=== PATIENT | male | born 1955 | race Caucasian/White ===

== ENCOUNTER → 2022-09-01 10:31 | Outpatient (BNVA) | payer BC, MEDICARE, SELFPAY | PROVIDERS: PCP Internal Medicine; Visit Provider Psychiatry & Neurology Neurology | DX: Z13.89 Encounter for screening for other disorder (principal) ==

== ENCOUNTER → 2022-09-22 13:33 | Outpatient (REF) | payer MEDICARE, BC, SELFPAY | LOC: HO.SL 13:33 | PROVIDERS: PCP Internal Medicine; Visit Provider Psychiatry & Neurology Neurology | DX: G47.33 Obstructive sleep apnea (adult) (pediatric) (principal); G47.10 Hypersomnia, unspecified; R06.83 Snoring | CPT/HCPCS: 95806 ==

== ENCOUNTER → 2022-11-08 14:51 | Outpatient (BNVA) | payer MEDICARE, BC, SELFPAY | PROVIDERS: PCP Physician Assistant; Visit Provider Nurse Practitioner Family | DX: G47.33 Obstructive sleep apnea (adult) (pediatric) (principal); R06.83 Snoring | CPT/HCPCS: 99212 ==

== ENCOUNTER → 2022-12-18 15:29 | Outpatient (BNVA) | payer MEDICARE, OTHER, BC, SELFPAY | PROVIDERS: PCP Physician Assistant; Visit Provider Psychiatry & Neurology Neurology | DX: G24.3 Spasmodic torticollis (principal); G43.909 Migraine, unspecified, not intractable, without status migrainosus; G89.29 Other chronic pain; G25.0 Essential tremor; G25.2 Other specified forms of tremor | CPT/HCPCS: 64616; 99211; J0585 ==

== ENCOUNTER 2023-04-13 12:17 | Outpatient (AMB) | payer MEDICARE, BC, SELFPAY ==
[2023-04-13 12:25] VITALS: PULSE 77; O2SAT 95; BMI 27.4
--- NOTE | 2023-04-13 12:25 | MHC.OFFVIS ---
Intake Vital Signs 04/13/23 12:25 Height 5 ft 8 in Weight 180 lb 2 oz BMI 27.4 Blood Pressure Location Rt brachial Position Sitting Pulse 77 Pulse Source Pulse Oximeter Pulse Oximetry (%) 95 Oxygen Delivery Method Room Air Intake Visit Reasons: Botox(B&B)-confirmed Intake Note: Pt presents in office for Botox. Pt states his tremors are getting worse. Director Digital Sales Required: No Allergies Penicillins Allergy (Unknown, Verified 04/13/23 12:30) Unknown Medication List - Last Reconciled 04/13/23 by Doris Wade MD acetaminophen (Tylenol Extra Strength) 500 mg PO Q6H PRN alprazolam (Xanax) 0.5 mg PO BEDTIME PRN cetirizine (Aller-Nabor) 10 mg PO DAILY PRN clonazepam (Klonopin) 0.5 mg PO BID cyclobenzaprine 5 mg PO BEDTIME PRN hyoscyamine sulfate 1 mL PO QIDACHS PRN lamotrigine 200 mg PO BID levothyroxine 50 mcg PO DAILY lisinopril-hydrochlorothiazide 10-12.5 mg 1 tab PO DAILY multivitamin 1 tab PO DAILY omega-3 fatty acids 500 mg PO DAILY primidone 250 mg PO BEDTIME propranolol 10 mg PO BID PRN propranolol ER 80 mg PO BEDTIME sildenafil (Viagra) 100 mg PO DAILY PRN sumatriptan succinate 50 mg PO Q2-4H PRN testosterone cypionate (Depo-Testosterone) 50 mg IM Q2W HPI HPI Comments History of Present Illness Details 67y/o male comes for treatment of his cervical dystonia ? Side effects including spread of toxin effect, dysphagia, breathing difficulties , bronchitis etc was discussed in detail and the patient agreed to the procedure.An informed consent was obtained ??? Botulinum toxin type A 200units X 1 -was diluted with 4 cc of normal saline at a concentration of 25 units in 0.5cc saline. Lot number [id number] expiration 09/2025 ??? Muscles injected ??? brent Splenius - 25 units each ??? Brent levator 50 units each ?? Brent semispinalis 25 units each ??? Total used 200 units PFSH Medical History Spasmodic torticollis Essential and other specified forms of tremor Hypersomnia Snoring ADD (attention deficit disorder) Memory loss HTN (hypertension) Thyroid activity decreased Chronic headaches Migraine Depression Back pain Arthritis Anemia Surgical History Hx of cholecystectomy History of knee surgery Family History Father Hypertension Tremors of nervous system Kidney disease Cerebrovascular accident (CVA) Mother Hypertension Kidney disease Social History Alcohol intake: current Alcohol intake frequency: holidays/special occasions only Patient Tobacco Use Status: Never used Tobacco Physical Exam Vital Signs: Last Vital Signs Pulse 77 04/13/23 12:25 Pulse Ox 95 04/13/23 12:25 Oxygen Delivery Method Room Air 04/13/23 12:25 BMI result Body Mass Index 27.4 Const General: cooperative, healthy appearing and comfortable Nutritional Appearance: average body habitus Orientation/consciousness: patient oriented x3 Neck Other: head tremors- mild no no dystonia - tenderness in right levator and splenius restricted range of movements Neuro General: patient oriented x3, tone normal, moves all extremities and no focal motor deficits Cognition (Neuro): normal cognition Gait exam (Neuro): Normal gait present Motor exam (neuro): 5/5 motor strength present throughout and Normal motor muscle tone present throughout Psych Appearance: grossly normal Office Procedures Botulinum toxin Injection 50644 - Dystonia Procedure code (CPT) selection complete Office Meds onabotulinumtoxinA 200 unit solution for injection Performing Provider: Doris Wade MD Performing Location: [facility] [place] [facility] Administered by: Doris Wade MD on 04/13/23 13:44 Dose Route Admin Location Dispensed Lot Number Expiration Date [facility] Stippler 200 unit IM 200 units [id number] 09/06/25 2330-9057-35 ALLERGAN/BOTOX Comments: see HPI Assessment & Plan Assessment & Plan (1) Spasmodic torticollis: Code(s): G24.3 - Spasmodic torticollis Plan Patient tolerated the procedure well He will call with any side effects Orders: Orders AMB Botulinum toxin Injection Today G24.3 - Spasmodic torticollis Coding Level of Care Code Est Pt Level 1 (39324) Diagnoses Spasmodic torticollis G24.3 CPT Codes Botox Injection - Botox 4: 96187 - Dystonia ([id number])
== END 2023-04-13 13:14 | disposition home or self-care (01) ==
PROVIDERS: Visit Provider Psychiatry & Neurology Neurology
DX: G24.3 Spasmodic torticollis (principal)
CPT/HCPCS: 64616

== ENCOUNTER → 2023-04-13 12:17 | Outpatient (BNVA) | payer MEDICARE, OTHER, BC, SELFPAY | PROVIDERS: Visit Provider Psychiatry & Neurology Neurology | DX: G24.3 Spasmodic torticollis (principal) | CPT/HCPCS: 64616; 99211; J0585 ==

== ENCOUNTER 2023-07-17 14:24 | Outpatient (AMB) | payer MEDICARE, OTHER, SELFPAY ==
[2023-07-17 14:37] VITALS: BP 122/76; PULSE 55; RESP 16; O2SAT 98; BMI 28.3
--- NOTE | 2023-07-17 14:37 | A.OFFVIS_ITS ---
Intake Vital Signs 07/17/23 14:37 Height 5 ft 8 in Weight 186 lb BMI 28.3 BP 122/76 Blood Pressure Location Rt brachial Position Sitting Respiration 16 Pulse 55 Pulse Source Pulse Oximeter Pulse Oximetry (%) 98 Oxygen Delivery Method Room Air Intake Visit Reasons: Botox(B&b) - Confirmed Intake Note: Pt presents to the office for Botox injections Coat Operator Insulator Required: No Allergies Penicillins Allergy (Unknown, Verified 07/17/23 14:37) Unknown Medication List - Last Reconciled 07/17/23 by Doris Wade MD acetaminophen (Tylenol Extra Strength) 500 mg PO Q6H PRN cetirizine (Aller-Nabor) 10 mg PO DAILY PRN clonazepam (Klonopin) 0.5 mg PO BID cyclobenzaprine 5 mg PO BEDTIME PRN hyoscyamine sulfate 1 mL PO QIDACHS PRN lamotrigine 200 mg PO BID levothyroxine 50 mcg PO DAILY lisinopril-hydrochlorothiazide 10-12.5 mg 1 tab PO DAILY multivitamin 1 tab PO DAILY omega-3 fatty acids 500 mg PO DAILY primidone 250 mg PO BEDTIME propranolol 10 mg PO BID PRN propranolol ER 80 mg PO BEDTIME sildenafil (Viagra) 100 mg PO DAILY PRN sumatriptan succinate 50 mg PO Q2-4H PRN testosterone cypionate (Depo-Testosterone) 50 mg IM Q2W HPI HPI Comments History of Present Illness Details 67y/o male comes for treatment of his cervical dystonia. He had neck pain after injection He also reports tremors in his UE and LE with some head tremors at rest and action. He is using a mandibular advancement device. ? Side effects including spread of toxin effect, dysphagia, breathing difficulties , bronchitis etc was discussed in detail and the patient agreed to the procedure.An informed consent was obtained ??? Botulinum toxin type A 200units X 1 -was diluted with 4 cc of normal saline at a concentration of 25 units in 0.5cc saline. Lot number [id number] expiration 11/2025 ??? Muscles injected ??? brent Splenius - 25 units each ??? Brent levator 50 units each ? Total used 150units Discarded 50units PFSH Medical History Spasmodic torticollis Essential and other specified forms of tremor Hypersomnia Snoring ADD (attention deficit disorder) Memory loss HTN (hypertension) Thyroid activity decreased Chronic headaches Migraine Depression Back pain Arthritis Anemia Surgical History Hx of cholecystectomy History of knee surgery Family History Father Hypertension Tremors of nervous system Kidney disease Cerebrovascular accident (CVA) Mother Hypertension Kidney disease Social History Alcohol intake: current Alcohol intake frequency: holidays/special occasions only Patient Tobacco Use Status: Never used Tobacco Physical Exam Vital Signs: Last Vital Signs Pulse 55 07/17/23 14:37 Resp 16 07/17/23 14:37 BP 122/76 07/17/23 14:37 Pulse Ox 98 07/17/23 14:37 Oxygen Delivery Method Room Air 07/17/23 14:37 BMI result Body Mass Index 28.3 Const General: cooperative, healthy appearing and comfortable Nutritional Appearance: average body habitus Orientation/consciousness: patient oriented x3 Neck Other: head tremors- mild no no dystonia - tenderness in right levator and splenius restricted range of movements Neuro General: patient oriented x3, tone normal, moves all extremities and no focal motor deficits Cognition (Neuro): normal cognition Gait exam (Neuro): Normal gait present Motor exam (neuro): 5/5 motor strength present throughout and Normal motor muscle tone present throughout Psych Appearance: grossly normal Office Procedures Botulinum toxin Injection 64932 - Dystonia Procedure code (CPT) selection complete Office Meds onabotulinumtoxinA 200 unit solution for injection Performing Provider: Doris Wade MD Performing Location: [facility] [place] [facility] Administered by: Doris Wade MD on 07/17/23 15:13 Dose Route Admin Location Dispensed Lot Number Expiration Date [facility] Veneer Drier 150 unit IM 200 units [id number] 11/04/25 6307-0789-17 ALLERGAN/BOTOX Comments: see hpi Assessment & Plan Assessment & Plan (1) Spasmodic torticollis: Code(s): G24.3 - Spasmodic torticollis Plan Patient tolerated the procedure well He will call with any side effects Orders: Orders AMB Botulinum toxin Injection Today G24.3 - Spasmodic torticollis Coding Level of Care Code Est Pt Level 1 (83903) Diagnoses Spasmodic torticollis G24.3 CPT Codes Botox Injection - Botox 4: 10379 - Dystonia ([id number])
== END 2023-07-17 15:06 | disposition home or self-care (01) ==
PROVIDERS: PCP Physician Assistant; Visit Provider Psychiatry & Neurology Neurology
DX: G24.3 Spasmodic torticollis (principal)
CPT/HCPCS: 64616

== ENCOUNTER → 2023-07-17 14:24 | Outpatient (BNVA) | payer MEDICARE, OTHER, BC, SELFPAY | PROVIDERS: PCP Physician Assistant; Visit Provider Psychiatry & Neurology Neurology | DX: G24.3 Spasmodic torticollis (principal) | CPT/HCPCS: 64616; 99211; J0585 ==

== ENCOUNTER 2023-10-16 14:53 | Outpatient (AMB) | payer MEDICARE, BC, OTHER, SELFPAY ==
[2023-10-16 14:55] VITALS: BP 112/78; PULSE 70; RESP 16; O2SAT 98; BMI 28.3
--- NOTE | 2023-10-16 14:55 | A.OFFVIS_ITS ---
Intake Vital Signs 10/16/23 14:55 Height 5 ft 8 in Weight 186 lb 2 oz BMI 28.3 BP 112/78 Blood Pressure Location Rt brachial Position Sitting Respiration 16 Pulse 70 Pulse Source Pulse Oximeter Pulse Oximetry (%) 98 Oxygen Delivery Method Room Air Intake Visit Reasons: Botox(B&B)-Confirmed Intake Note: Pt presents to the office for Botox injections. Enterprise Sales Executive Required: No Allergies Penicillins Allergy (Unknown, Verified 10/16/23 15:01) Unknown Medication List - Last Reconciled 10/16/23 by Doris Wade MD acetaminophen (Tylenol Extra Strength) 500 mg PO Q6H PRN cetirizine (Aller-Nbaor) 10 mg PO DAILY PRN clonazepam (Klonopin) 0.5 mg PO BID cyclobenzaprine 5 mg PO BEDTIME PRN hyoscyamine sulfate 1 mL PO QIDACHS PRN lamotrigine 200 mg PO BID levothyroxine 50 mcg PO DAILY lisinopril-hydrochlorothiazide 10-12.5 mg 1 tab PO DAILY multivitamin 1 tab PO DAILY omega-3 fatty acids 500 mg PO DAILY primidone 250 mg PO BEDTIME propranolol 10 mg PO BID PRN propranolol ER 80 mg PO BEDTIME sildenafil (Viagra) 100 mg PO DAILY PRN sumatriptan succinate 50 mg PO Q2-4H PRN HPI HPI Comments History of Present Illness Details 68y/o male comes for treatment of his cervical dystonia. He had neck pain after injection He also reports tremors in his UE and LE with some head tremors at rest and action. He is using a mandibular advancement device. ? Side effects including spread of toxin effect, dysphagia, breathing difficulties , bronchitis etc was discussed in detail and the patient agreed to the procedure.An informed consent was obtained ??? Botulinum toxin type A 200units X 1 -was diluted with 4 cc of normal saline at a concentration of 25 units in 0.5cc saline. Lot number [id number] expiration 01/2026 ??? Muscles injected ??? brent Splenius - 25 units each ??? Brent levator 50 units each Brent semispinalis 12.5 units each ? Total used 175units Discarded 25units PFSH Medical History Spasmodic torticollis Essential and other specified forms of tremor Hypersomnia Snoring ADD (attention deficit disorder) Memory loss HTN (hypertension) Thyroid activity decreased Chronic headaches Migraine Depression Back pain Arthritis Anemia Surgical History Hx of cholecystectomy History of knee surgery Family History Father Hypertension Tremors of nervous system Kidney disease Cerebrovascular accident (CVA) Mother Hypertension Kidney disease Social History Alcohol intake: current Alcohol intake frequency: holidays/special occasions only Patient Tobacco Use Status: Never used Tobacco Physical Exam Vital Signs: Last Vital Signs Pulse 70 10/16/23 14:55 Resp 16 10/16/23 14:55 BP 112/78 10/16/23 14:55 Pulse Ox 98 10/16/23 14:55 Oxygen Delivery Method Room Air 10/16/23 14:55 BMI result Body Mass Index 28.3 Const General: cooperative, healthy appearing and comfortable Nutritional Appearance: average body habitus Orientation/consciousness: patient oriented x3 Neck Other: head tremors- mild no no dystonia - tenderness in right levator and splenius restricted range of movements Neuro General: patient oriented x3, tone normal, moves all extremities and no focal motor deficits Cognition (Neuro): normal cognition Gait exam (Neuro): Normal gait present Motor exam (neuro): 5/5 motor strength present throughout and Normal motor muscle tone present throughout Psych Appearance: grossly normal Office Procedures Botulinum toxin Injection 34202 - Dystonia Procedure code (CPT) selection complete Office Meds onabotulinumtoxinA 200 unit solution for injection Performing Provider: Doris Wade MD Performing Location: [facility] [place] [facility] Administered by: Doris Wade MD on 10/16/23 15:13 Dose Route Admin Location Dispensed Lot Number Expiration Date [facility] Solar Sales Assessor 175 unit IM 200 units [id number] 01/04/26 5427-4533-85 ALLERGAN/BOTOX Comments: see HPI Assessment & Plan Assessment & Plan (1) Spasmodic torticollis: Code(s): G24.3 - Spasmodic torticollis Plan Patient tolerated the procedure well He will call with any side effects Orders: Orders AMB Botulinum toxin Injection Today G24.3 - Spasmodic torticollis Coding Level of Care Code Est Pt Level 1 (48889) Diagnoses Spasmodic torticollis G24.3 CPT Codes Botox Injection - Botox 4: 20860 - Dystonia ([id number])
== END 2023-10-16 15:30 ==
PROVIDERS: PCP Physician Assistant; Visit Provider Psychiatry & Neurology Neurology
DX: G24.3 Spasmodic torticollis (principal)
CPT/HCPCS: 64616

== ENCOUNTER → 2023-10-16 14:53 | Outpatient (BNVA) | payer MEDICARE, OTHER, BC, SELFPAY | PROVIDERS: PCP Physician Assistant; Visit Provider Psychiatry & Neurology Neurology | DX: G24.3 Spasmodic torticollis (principal) | CPT/HCPCS: 64616; 99211; J0585 ==

== ENCOUNTER 2024-01-21 10:31 | Outpatient (AMB) | payer MEDICARE, BC, OTHER, SELFPAY ==
--- NOTE | 2024-01-21 10:39 | A.OFFVIS_ITS ---
Vital Signs 01/21/24 10:40 Height 5 ft 8 in Weight 185 lb BMI 28.1 BP 116/62 Blood Pressure Location Rt brachial Position Sitting Respiration 16 Pulse 58 Pulse Source Pulse Oximeter Pulse Oximetry (%) 96 Oxygen Delivery Method Room Air Intake Visit Reasons: Botox - LVM w/add Intake Note: Pt presents for Botox injections. Sales Ledger Clerk Required: No Allergies Penicillins Allergy (Unknown, Verified 01/21/24 10:39) Unknown Medication List - Last Reconciled 01/21/24 by Doris Wade MD acetaminophen (Tylenol Extra Strength) 500 mg PO Q6H PRN cetirizine (Aller-Nabor) 10 mg PO DAILY PRN clonazepam (Klonopin) 0.5 mg PO BID cyclobenzaprine 5 mg PO BEDTIME PRN hyoscyamine sulfate 1 mL PO QIDACHS PRN lamotrigine 200 mg PO BID levothyroxine 50 mcg PO DAILY lisinopril-hydrochlorothiazide 10-12.5 mg 1 tab PO DAILY multivitamin 1 tab PO DAILY omega-3 fatty acids 500 mg PO DAILY primidone 250 mg PO BEDTIME propranolol 10 mg PO BID PRN propranolol ER 80 mg PO BEDTIME sildenafil (Viagra) 100 mg PO DAILY PRN sumatriptan succinate 50 mg PO Q2-4H PRN HPI Comments Details: 68y/o male comes for treatment of his cervical dystonia. He had neck pain after injection He also reports tremors in his UE and LE with some head tremors at rest and action. He is using a mandibular advancement device. ? Side effects including spread of toxin effect, dysphagia, breathing difficulties , bronchitis etc was discussed in detail and the patient agreed to the procedure.An informed consent was obtained ??? Botulinum toxin type A 200units X 1 -was diluted with 4 cc of normal saline at a concentration of 25 units in 0.5cc saline. Lot number [id number] expiration 01/2026 ??? Muscles injected ??? brent Splenius - 25 units each ??? Brent levator 50 units each Brent semispinalis 12.5 units each ? Total used 175units Discarded 25units PFSH Medical History Spasmodic torticollis Essential and other specified forms of tremor Hypersomnia Snoring ADD (attention deficit disorder) Memory loss HTN (hypertension) Thyroid activity decreased Chronic headaches Migraine Depression Back pain Arthritis Anemia Surgical History Hx of cholecystectomy History of knee surgery Family History Father Hypertension Tremors of nervous system Kidney disease Cerebrovascular accident (CVA) Mother Hypertension Kidney disease Social History Alcohol intake: current Alcohol intake frequency: holidays/special occasions only Patient Tobacco Use Status: Never used Tobacco Physical Exam Vital Signs: Last Vital Signs Pulse 58 01/21/24 10:40 Resp 16 01/21/24 10:40 BP 116/62 01/21/24 10:40 Pulse Ox 96 01/21/24 10:40 Oxygen Delivery Method Room Air 01/21/24 10:40 BMI result Body Mass Index 28.1 Const General: cooperative, healthy appearing and comfortable Nutritional Appearance: average body habitus Orientation/consciousness: patient oriented x3 Neck Other: head tremors- mild no no dystonia - tenderness in right levator and splenius restricted range of movements Neuro General: patient oriented x3, tone normal, moves all extremities and no focal motor deficits Cognition (Neuro): normal cognition Gait exam (Neuro): Normal gait present Motor exam (neuro): 5/5 motor strength present throughout and Normal motor muscle tone present throughout Psych Appearance: grossly normal Office Procedures Botulinum toxin Injection 31571 - Dystonia Procedure code (CPT) selection complete Office Meds onabotulinumtoxinA 200 unit solution for injection Performing Provider: Doris Wade MD Performing Location: [facility] [place] [facility] Administered by: Doris Wade MD on 01/21/24 11:07 Dose Route Admin Location Dispensed Lot Number Expiration Date [facility] Precision Structural Metal Fitter 175 unit IM 200 units [id number] 01/04/26 2429-3183-59 ALLERGAN/BOTOX Comments: see HPI Assessment & Plan Assessment & Plan (1) Spasmodic torticollis: Code(s): G24.3 - Spasmodic torticollis Category: Medical Plan Patient tolerated the procedure well He will call with any side effects Orders: Orders AMB Botulinum toxin Injection Today G24.3 - Spasmodic torticollis Medications: New onabotulinumtoxinA 200 units IM ONCE 1 ea 0RF [id number] G24.3 - Spasmodic torticollis Coding Level of Care Code Est Pt Level 1 (80263) Diagnoses Spasmodic torticollis G24.3 CPT Codes Botox Injection - Botox 4: 16807 - Dystonia ([id number])
[2024-01-21 10:40] VITALS: BP 116/62; PULSE 58; RESP 16; O2SAT 96; BMI 28.1
== END 2024-01-21 11:08 | disposition home or self-care (01) ==
PROVIDERS: PCP Physician Assistant; Visit Provider Psychiatry & Neurology Neurology
DX: G24.3 Spasmodic torticollis (principal)
CPT/HCPCS: 64616

== ENCOUNTER → 2024-01-21 10:31 | Outpatient (BNVA) | payer MEDICARE, BC, SELFPAY | PROVIDERS: PCP Physician Assistant; Visit Provider Psychiatry & Neurology Neurology | DX: G24.3 Spasmodic torticollis (principal) | CPT/HCPCS: 64616; 99211; J0585 ==

== ENCOUNTER 2024-03-05 14:22 | Outpatient (AMB) | payer MEDICARE, BC, OTHER, SELFPAY ==
--- NOTE | 2024-03-05 14:34 | MHC.OFFVIS ---
Vital Signs 03/05/24 14:35 Height 5 ft 8 in Weight 185 lb BMI 28.1 BP 122/68 Blood Pressure Location Rt brachial Position Sitting Respiration 16 Pulse 64 Pulse Source Palpation Intake Visit Reasons: Follow up - Confirmed Intake Note: Pt presents to the office for a 1 month follow up for Spasmodic torticollis. Recycling Or Rubbish Collector Required: No Allergies Penicillins Allergy (Unknown, Verified 03/05/24 14:35) Unknown HPI Comments Details: 68y/o male comes for follow up of his cervical dystonia. He had his botox to his neck muscles on January 21 2024( 6 weeks ago).3weeks ago turning his head to both directions and anterior and posterior tilting were weak.He had mild discomfort.He started feeling better and started again 2 days ago. He is using a mandibular advancement device. He also has hand tremors - postural action - takes propranalol and primidone. Leg tremors are worse at rest. [facility] Medical History Spasmodic torticollis Essential and other specified forms of tremor Hypersomnia Snoring ADD (attention deficit disorder) Memory loss HTN (hypertension) Thyroid activity decreased Chronic headaches Migraine Depression Back pain Arthritis Anemia Surgical History Hx of cholecystectomy History of knee surgery Family History Father Hypertension Tremors of nervous system Kidney disease Cerebrovascular accident (CVA) Mother Hypertension Kidney disease Social History Alcohol intake: current Alcohol intake frequency: holidays/special occasions only Patient Tobacco Use Status: Never used Tobacco Physical Exam Vital Signs: Last Vital Signs Pulse 64 03/05/24 14:35 Resp 16 03/05/24 14:35 BP 122/68 03/05/24 14:35 BMI result Body Mass Index 28.1 Const General: cooperative, healthy appearing and comfortable Nutritional Appearance: average body habitus Orientation/consciousness: patient oriented x3 Eyes Pupils: Equal, round and reactive pupils present Neuro Other: mild head tremors - no no mild jaw tremors good range of motion Mild postural tremors General: patient oriented x3, tone normal, moves all extremities and no focal motor deficits Cranial nerves: Yes Facial sensation intact/muscles of mastication intact, Yes Equal, round and reactive pupils present, Yes Nystagmus not present and Yes Normal facial strength present Cognition (Neuro): normal cognition Gait exam (Neuro): Normal gait present Deep tendon reflexes (DTR's): Right triceps reflex intensity grade: 2+, Left triceps reflex intensity grade: 2+, Rt Biceps (C5, C6): 2+, Left biceps reflex intensity grade: 2+, Right brachioradialis reflex intensity grade: 2+, Left brachioradialis reflex intensity grade: 2+, Right patellar reflex intensity grade: 2+ and Left patellar reflex intensity grade: 2+ Assessment & Plan Assessment & Plan (1) Spasmodic torticollis: Code(s): G24.3 - Spasmodic torticollis Category: Medical (2) JULEE (obstructive sleep apnea): Comment: Mild degree of sleep apnea. The AHI was 10/hr and oxygen valeria was 86%. Code(s): G47.33 - Obstructive sleep apnea (adult) (pediatric) Category: Medical (3) Essential and other specified forms of tremor: Code(s): G25.0 - Essential tremor; G25.2 - Other specified forms of tremor Category: Medical Plan Reviewed side effects of botox and his complaints of neck weakness are related to botox. Propranolol 80mg LA qd Propranolol 10mg bid - take consistently continue other medications. Coding Level of Care Code Est Pt Level 4 (03663) Diagnoses Spasmodic torticollis G24.3 JULEE (obstructive sleep apnea) G47.33 Essential and other specified forms of tremor G25.0; G25.2
[2024-03-05 14:35] VITALS: BP 122/68; PULSE 64; RESP 16; BMI 28.1
== END 2024-03-05 15:14 | disposition home or self-care (01) ==
PROVIDERS: PCP Physician Assistant; Visit Provider Psychiatry & Neurology Neurology
DX: G24.3 Spasmodic torticollis (principal); G47.33 Obstructive sleep apnea (adult) (pediatric); G25.0 Essential tremor; G25.2 Other specified forms of tremor
CPT/HCPCS: 99214

== ENCOUNTER → 2024-03-05 14:22 | Outpatient (BNVA) | payer MEDICARE, OTHER, BC, SELFPAY | PROVIDERS: PCP Physician Assistant; Visit Provider Psychiatry & Neurology Neurology | DX: G24.3 Spasmodic torticollis (principal); G47.33 Obstructive sleep apnea (adult) (pediatric); G25.0 Essential tremor; G25.2 Other specified forms of tremor | CPT/HCPCS: 99212 ==

== ENCOUNTER 2024-06-09 08:04 | Outpatient (AMB) | payer MEDICARE, BC, SELFPAY ==
--- NOTE | 2024-06-09 08:17 | MHC.OFFVIS ---
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 Accompanied by: Self / Same As Patient Allergies Penicillins Allergy (Unknown, Verified 06/09/24 08:20) Unknown Medication List - Last Reconciled 06/09/24 by Doris Wade MD acetaminophen (Tylenol Extra Strength) 500 mg PO Q6H PRN bupropion HCl 100 mg PO ONCE cetirizine (Aller-Nabor) 10 mg PO DAILY PRN clonazepam (Klonopin) 0.5 mg PO BID cyclobenzaprine 5 mg PO BEDTIME PRN hyoscyamine sulfate 1 mL PO QIDACHS PRN lamotrigine 200 mg PO BID levothyroxine 50 mcg PO DAILY lisinopril-hydrochlorothiazide 10-12.5 mg 1 tab PO DAILY multivitamin 1 tab PO DAILY omega-3 fatty acids 500 mg PO DAILY primidone 250 mg PO BEDTIME primidone 50 mg PO QAM propranolol 10 mg PO BID propranolol ER 80 mg PO BEDTIME sildenafil (Viagra) 100 mg PO DAILY PRN sumatriptan succinate 50 mg PO Q2-4H PRN tadalafil 40 mg PO DAILY PRN Do you need a note to return to daycare/school/sports/work: No HPI Comments Details: 68y/o male comes for treatment of his cervical dystonia. He had neck pain after injection He also reports tremors in his UE and LE with some head tremors at rest and action. He is using a mandibular advancement device. ? Side effects including spread of toxin effect, dysphagia, breathing difficulties , bronchitis etc was discussed in detail and the patient agreed to the procedure.An informed consent was obtained ??? Botulinum toxin type A 200units X 1 -was diluted with 4 cc of normal saline at a concentration of 25 units in 0.5cc saline. Lot number [id number] ??? Muscles injected ??? lucina Splenius - 25 units each ??? Lucina levator 50 units each Lucina semispinalis 12.5 units each ? Total used 175units Discarded 25units [facility] Medical History Spasmodic torticollis Essential and other specified forms of tremor Hypersomnia Snoring ADD (attention deficit disorder) Memory loss HTN (hypertension) Thyroid activity decreased Chronic headaches Migraine Depression Back pain Arthritis Anemia Surgical History Hx of cholecystectomy History of knee surgery Family History Father Hypertension Tremors of nervous system Kidney disease Cerebrovascular accident (CVA) Mother Hypertension Kidney disease Social History Alcohol intake: current Alcohol intake frequency: holidays/special occasions only Patient Tobacco Use Status: Never used Tobacco Physical Exam Vital Signs: Last Vital Signs Pulse 57 06/09/24 08:18 BP 122/80 06/09/24 08:18 Pulse Ox 95 06/09/24 08:18 Oxygen Delivery Method Room Air 06/09/24 08:18 BMI result Body Mass Index 27.4 Const General: cooperative, healthy appearing and comfortable Nutritional Appearance: average body habitus Orientation/consciousness: patient oriented x3 Eyes Pupils: Equal, round and reactive pupils present Neuro Other: mild head tremors - no no mild jaw tremors good range of motion Mild postural tremors General: patient oriented x3, tone normal, moves all extremities and no focal motor deficits Cranial nerves: Yes Facial sensation intact/muscles of mastication intact, Yes Equal, round and reactive pupils present, Yes Nystagmus not present and Yes Normal facial strength present Cognition (Neuro): normal cognition Gait exam (Neuro): Normal gait present Deep tendon reflexes (DTR's): Right triceps reflex intensity grade: 2+, Left triceps reflex intensity grade: 2+, Rt Biceps (C5, C6): 2+, Left biceps reflex intensity grade: 2+, Right brachioradialis reflex intensity grade: 2+, Left brachioradialis reflex intensity grade: 2+, Right patellar reflex intensity grade: 2+ and Left patellar reflex intensity grade: 2+ Office Procedures Botulinum toxin Injection 11603 - Dystonia Procedure code (CPT) selection complete Office Meds onabotulinumtoxinA 200 unit solution for injection Performing Provider: Doris Wade MD Performing Location: [facility] Administered by: Doris Wade MD on 06/09/24 11:00 Dose Route Admin Location Dispensed Lot Number Expiration Date NDC [employer] 175 unit IM 200 units [id number] 09/06/26 9460-7754-92 ALLERGAN/BOTOX Comments: see hpi Assessment & Plan Assessment & Plan (1) Spasmodic torticollis: Code(s): G24.3 - Spasmodic torticollis Category: Medical (2) JULEE (obstructive sleep apnea): Comment: Mild degree of sleep apnea. The AHI was 10/hr and oxygen valeria was 86%. Code(s): G47.33 - Obstructive sleep apnea (adult) (pediatric) Category: Medical (3) Essential and other specified forms of tremor: Code(s): G25.0 - Essential tremor; G25.2 - Other specified forms of tremor Category: Medical Plan Reviewed side effects of botox and his complaints of neck weakness are related to botox. Propranolol 80mg LA qd Propranolol 10mg bid - take consistently add primidone 50mg qam continue other medications. Orders: Orders AMB Botulinum toxin Injection Today G24.3 - Spasmodic torticollis Medications: New primidone 50 mg PO QAM 30 tabs 0RF onabotulinumtoxinA 200 units IM ONCE 1 ea 0RF torticollis G24.3 - Spasmodic torticollis Coding Level of Care Code Est Pt Level 3 (80316) Diagnoses Spasmodic torticollis G24.3 JULEE (obstructive sleep apnea) G47.33 Essential and other specified forms of tremor G25.0; G25.2 CPT Codes Botox Injection - Botox 4: 72357 - Dystonia ([id number])
[2024-06-09 08:18] VITALS: BP 122/80; PULSE 57; O2SAT 95; BMI 27.4
== END 2024-06-09 08:40 | disposition home or self-care (01) ==
LOC: HO.HSMS 08:05
PROVIDERS: PCP Physician Assistant; Visit Provider Psychiatry & Neurology Neurology
DX: G24.3 Spasmodic torticollis (principal)
CPT/HCPCS: 64616

== ENCOUNTER → 2024-06-09 08:04 | Outpatient (BNVA) | payer MEDICARE, BC, SELFPAY | PROVIDERS: PCP Physician Assistant; Visit Provider Psychiatry & Neurology Neurology | DX: G24.3 Spasmodic torticollis (principal); G47.33 Obstructive sleep apnea (adult) (pediatric); G25.0 Essential tremor; G25.2 Other specified forms of tremor | CPT/HCPCS: 64616; 99211; J0585 ==

== ENCOUNTER 2024-09-04 10:31 | Outpatient (AMB) | payer MEDICARE, SELFPAY ==
--- NOTE | 2024-09-04 10:31 | A.OFFVIS_ITS ---
Vital Signs 09/04/24 10:32 Height 5 ft 8 in Intake Visit Reasons: Botox Intake Note: Patient presents for botox Allergies Penicillins Allergy (Unknown, Verified 09/04/24 10:32) Unknown HPI Comments Details: 69y/o male comes for treatment of his cervical dystonia. He had neck pain after injection and had swallowing issues for 2 months and he wants to hold off on medications. He also reports tremors in his UE and LE with some head tremors at rest and action. More with action now. He uses 2 hands to support during some activities. He is using a mandibular advancement device. ?He had 175 units of botox in Jun 2024 [facility] Medical History Spasmodic torticollis Essential and other specified forms of tremor Hypersomnia Snoring ADD (attention deficit disorder) Memory loss HTN (hypertension) Thyroid activity decreased Chronic headaches Migraine Depression Back pain Arthritis Anemia Surgical History Hx of cholecystectomy History of knee surgery Family History Father Hypertension Tremors of nervous system Kidney disease Cerebrovascular accident (CVA) Mother Hypertension Kidney disease Social History Alcohol intake: current Alcohol intake frequency: holidays/special occasions only Patient Tobacco Use Status: Never used Tobacco Physical Exam Const General: cooperative, healthy appearing and comfortable Nutritional Appearance: average body habitus Orientation/consciousness: patient oriented x3 Neuro Other: mild head tremors - no no mild jaw tremors good range of motion Mild postural tremors General: patient oriented x3, tone normal, moves all extremities and no focal motor deficits Cranial nerves: Yes Facial sensation intact/muscles of mastication intact and Yes Normal facial strength present Cognition (Neuro): normal cognition Gait exam (Neuro): Normal gait present Assessment & Plan Assessment & Plan (1) Spasmodic torticollis: Code(s): G24.3 - Spasmodic torticollis Category: Medical (2) JULEE (obstructive sleep apnea): Comment: Mild degree of sleep apnea. The AHI was 10/hr and oxygen valeria was 86%. Code(s): G47.33 - Obstructive sleep apnea (adult) (pediatric) Category: Medical (3) Essential and other specified forms of tremor: Code(s): G25.0 - Essential tremor; G25.2 - Other specified forms of tremor Category: Medical Plan D/C botox Propranolol 80mg LA qd Propranolol 10mg bid -wants to use it to as needed. Primidone 50mg qam 250mg qhs continue other medications. He is seeing Dental Sleep medicine - for JULEE .He has mandibular advancement linda ce. Coding Level of Care Code Est Pt Level 4 (01968) Complex EM visit Add On G2211 Diagnoses Spasmodic torticollis G24.3 JULEE (obstructive sleep apnea) G47.33 Essential and other specified forms of tremor G25.0; G25.2
--- OUTSIDE RECORDS SUMMARY | 2024-09-04 14:06 | XMS_ITS | Encounter Summary ---
Author Organization [facility]ly [facility] Address [address] [place] [address] Care Team Providers Care Plastic Panel Installer Name Role Phone Fatmata Bullock DO Primary Care Provider Encounter Details Date Type Department Care Team (Late st Contact Info) Description 04/11/2024 Scanned Document [facility] Department of Internal Medicine [address] [place] [address] Fatmata Bullock DO [address] [place] [address] Social History Tobacco Use Types Packs/Day Years Used Date Smoking Tobacco: Never Smokeless Tobacco: Never Alcohol Use Standard Drinks/Week Comments Yes 0 (1 standard drink = 0.6 oz pur e alcohol) occasional Sex and Gender Information Value Date Recorded Sex Assigned at Male 03/06/2024 6:06 PM EDT Gender Identity Male 03/06/2024 6:06 PM EDT Sexual Orientation Heterosexual (straight) 03/06 6:06 PM EDT documented as of this encounter Plan of Treatment Upcoming Encounters Date Type Department Care Team (Late st Contact Info) Description 10/23/2024 11:45 AM EDT Office Visit [facility] Department of Internal Medicine [address] [place] [address] Fatmata Bullock DO [address] [place] [id number] documented as of this encounter Visit Diagnoses Not on filedocumented in this encounter Care Teams Plastic Panel Installer Relationship Specialty Start Date End Date Fatmata Bullock DO [address] [id number] PCP - General Family Medicine 03/06/24 documented as of this encounter
--- OUTSIDE RECORDS SUMMARY | 2024-09-04 14:06 | XMS_ITS | Data Portability ---
Author Organization [place] [facility] [place] Address [address] [place] [address] Care Team Providers Care Instrument Panel Assembler Name Role Phone BOAZ TAY Referring Provider [phone] Assessment Encounter Date Assessment Date Assessment LastModified by Organization Details LastModified Time 11/05/2023 11/05/2023 Longstanding bilateral knee pain. History of arthroscopies in the remote past. He has some degenerative changes in the bilateral knees. He has a feeling of hyperextension in the left knee, his ligament exam today is stable. He tells me he has difficulty remembering things so he asked that he record the plan on his phone. I reviewed treatment options with him. He will consider a knee sleeve or short hinged knee brace for the left knee. We will trial a course of physical therapy, prescription provided today. If no improvement we may consider injections, possible further workup of the left knee with an MRI. He is comfortable with the plan as outlined. He will let symptoms be his guide with regards to activity. Questions invited and answered. Not available 12/03/2023 17:37:59 05/19/2024 05/19/2024 Symptomatic bilateral knee osteoarthritis. Left knee is more symptomatic than the right. We talked about treatment options. Given his left knee symptoms we decided on a trial of an intra-articular cortisone injection. He tolerated this well. Postinjection instructions reviewed. If he derives good relief and has ongoing symptoms on the right he may call and return for an injection on that side. Future consideration for viscosupplementat ion. If he develops persistent mechanical symptoms we could consider an MRI, however, given his degenerative changes I am not optimistic that an arthroscopic intervention would be of substantial meaningful benefit. He will continue his home exercise program. He is also going to work on getting a larger size short hinged knee brace for his left knee as the one he has feels a little bit too tight. Greater than 30 minutes was spent with the encounter today, including face to face time with the patient, documentation, review of records/imaging if applicable, and coordination of care. PRIOR: Longstanding bilateral knee pain. History of arthroscopies in the remote past. He has some degenerative changes in the bilateral knees. He has a feeling of hyperextension in the left knee, his ligament exam today is stable. He tells me he has difficulty remembering things so he asked that he record the plan on his phone. I reviewed treatment options with him. He will consider a knee sleeve or short hinged knee brace for the left knee. We will trial a course of physical therapy, prescription provided today. If no improvement we may consider injections, possible further workup of the left knee with an MRI. He is comfortable with the plan as outlined. He will let symptoms be his guide with regards to activity. Questions invited and answered. [email or web address] Not available 05/19/2024 12:07:00 Plan of Treatment Reminders Order Date Submit Date Provider Last Modified By Organization Details Last Modified Time Details Appointments None recorded. Lab None recorded. Referral None recorded. Procedures None recorded. Surgeries None recorded. Imaging XR, knee, 3 view 2023 024 [facility], [address], [place], [address], 4 11:09:23 XR, knee, 3 view 2023 024 [facility], [address], [place], [address], 4 11:09:23 Medication Orders lidocaine (PF) 100 mg/5 mL (2 %) injection syringe 2023 [id number], [address] [place] [address], [address], 12:38:32 triamcinolo ne acetonide 40 mg/mL suspension for injection 2023 024 [id number], [address] [place] [address], [place], [address], 12:38:32 Patient TargetsNo targets recorded. Patient Instructions Encounter Date Encounter Id Patient Instructions Last Modified By Organization Details Last Modified Time 11/05/2023 [id number] consider a knee sleeve or short hinged knee brace for the left knee. Not available 11/05/2023 10:53:27 3 views of the bilateral knees were obtained on 11/05/2023 in the [place] office. There is mild narrowing of the medial joint spaces. Moderate marginal osteophyte formation best appreciated on the merchant view. Mild retropatellar spurring. Patella tracks centrally. No acute fracture appreciated. Small enthesophyte from the superior patella on the left at the quad insertion. Findings: Degenerative changes noted bilateral knees most prominent in the medial and patellofemoral compartments. Interpreted by: Kadeem Parrish MD Not available 12/03/2023 17:37:01 05/19/2024 [id number] Patient Instructions Following Cortisone Injections Dr. Parrish has recommended a cortisone injection for you in the office today. He has injected the area in order to reduce the pain and inflammation that you are experiencing. Please note that not everyone will have a lasting response following the injection. Here is some information that he would like for you to have: Content of the Injection: The injection consists of two medications. Cortisone (an anti-inflammatory that will take 48-72 hours to take effect) and Lidocaine (a numbing agent that will last 2-3 hours). Once the Lidocaine wears off, you may have an increase in your pain. Dr. Parrish recommends icing the affected area for 20 minutes 3-4 times per day. Post-injection Instructions: It is recommended that you refrain from any high level activities using the joint or limb that was injected for approximately 24-48 hours. Normal day to day activities are generally not a problem. Possible Side Effects Skin discoloration: Individuals with dark complexions may experience some skin discoloration locally at the site of the injection. Steroid Flare-Up: There is the possibility of an increase in discomfort within 48 hours following the injection. This is called a ? f lare? . To help minimize the chances of this, please see the post-injection instructions above. Infection: There is a less than 1% chance of an infection. If you notice any signs of infection (redness, warmth, drainage, fever greater than 100 degrees) you should call Dr. Parrish? s office immediately at [phone]. Not available 05/19/2024 12:06:07 Reason for Referral None Reported. Problems Name Problem SNOMED Code Status Onset Date Resolution Date Notes Provider Name and Address Organization Details Recorded Time Pain of right knee region 130394664776694 Active 2023 Kadeem Parrish MD [address], [place], [address] , [facility] 19:34:32 Pain of left knee region 255615200916871 Active 2023 Not Available [facility] 10:25:52 Problem Notes None recorded. Procedures Surgical History Date Name Laterality Status Provider Name and Address Organization Details Recorded Time 05/19/20 24 SAB Knee Inj w/US completed Kadeem Parrish MD [address], [place], [address], [place] [facility] 05/19/2024 12:05:56 cholecystectomy completed Jayashree Coe [facility] 11/05/2023 10:34:19 Imaging Results None recorded. Procedure Notes None recorded. Medical Equipment None Reported. Allergies Allergen ID Allergen Name Allergen Category Reaction Reaction Severity Criticality Documentation Date Start Date Code Code System Note Provider Name and Address Organization Details Recorded Time 49060 Product containin g penicilli n and antibioti c (product) medicatio n Not available Not available Not available 11/05/2023 82985 05 SNOMED Jayashree Coe [facility], [place] - [facility] 4 10:32:45 Medications Name Sig Start Date Stop Date Status Note LastModified by Organization Details LastModified Time lamotrigine 200 mg tablet Take 1 tablet twice a day by oral route. active Not Available Not Available No t Available prednisone 20 mg tablet TAKE 2 TABLETS BY MOUTH EVERY DAY WITH FOOD 11/28 completed Not Available Not Available Not Available clonazepam 0.5 mg tablet TAKE 1 TABLET BY MOUTH TWICE A DAY active Not Available Not Available No t Available sulfamethox azole 800 mg-trimetho prim 160 mg tablet TAKE 1 TABLET BY MOUTH TWICE A DAY 11/28 completed Not Available Not Available Not Available doxycycline monohydrate 100 mg tablet TAKE 1 TABLET BY MOUTH TWICE A DAY FOR 7 DAYS 11/28 completed Not Available Not Available Not Available sildenafil 100 mg tablet 1 tablet as needed by oral route. 2023 active Not Available Not Available Not Avai lable bupropion HCl SR 100 mg tablet,12 hr sustained-r elease TAKE 1 TABLET BY MOUTH EVERY DAY active Not Available Not Available No t Available propranolol 10 mg tablet Take 2 tablets 3 times a day by oral route. active Not Available Not Available No t Available primidone 250 mg tablet active Not Available Not Available Not Available triamcinolo ne acetonide 40 mg/mL suspension for injection Take 60 mg by injection route. 2023 active Not Available Not Available Not Avai lable levothyroxi ne 50 mcg tablet active Not Available Not Available Not Available triamcinolo ne acetonide 0.1 % topical ointment PLEASE SEE ATTACHED FOR DETAILED DIRECTION S 11/28 completed Not Available Not Available Not Available propranolol ER 80 mg capsule,24 hr,extended release active Not Available Not Available Not Available betamethaso ne dipropionat e 0.05 % topical cream APPLY TOPICALLY 2 (TWO) TIMES A DAY. PICKING UP URVASHI 11/28 completed Not Available Not Available Not Available mupirocin 2 % topical ointment APPLY ONCE DAILY TO AREA ON LEG 11/28 completed Not Available Not Available Not Available lisinopril 10 mg-hydrochl orothiazide 12.5 mg tablet Take 1 tablet every day by oral route. active Not Available Not Available No t Available testosteron e cypionate 200 mg/mL intramuscul ar oil INJECT 0.7 ML INTRAMUSC ULARLY EVERY 2 WEEKS 11/28 completed Not Available Not Available Not Available lamotrigine 100 mg tablet active Not Available Not Available Not Available oxycodone 5 mg tablet TAKE 1 TABLET BY MOUTH EVERY 6 HOURS,X3 DAYS, NEEDED SEVERE PAIN 11/28 completed Not Available Not Available Not Available cyclobenzap rine 5 mg tablet active Not Available Not Available Not Available tadalafil 5 mg tablet active Not Available Not Available No t Available omega-3 acid ethyl esters 1 gram capsule active Not Available Not Available Not Available sumatriptan active Not Available Not A vailable Not Available Klonopin active Not Available Not Avai lable Not Available cyclobenzap rine 11/28 completed Not Available Not Available Not Available primidone 11/28 completed Not Available Not Available Not Available Wellbutrin XL 2023 active Not Available Not Available Not Avai lable tadalafil 2023 active Not Available Not Available Not Avai lable testosteron e 20.25 mg/1.25 gram per pump act.(1.62 %) transdermal gel APPLY 2 PUMPS UNSPECIFI ED TRANSDERM AL EVERY DAY 11/28 completed Not Available Not Available Not Available lidocaine (PF) 100 mg/5 mL (2 %) injection syringe Take 3 mL by injection route. 2023 active Not Available Not Available Not Avai lable Vitals Date Recorded Body height Body mass index (BMI) Body weight Provider Name and Address Organization Details Last Updated DateTime 11/05/2023 172.72 cm 27.4 kg/m2 48692.63 g Jayashree Coe [facility] 11/05/2023 10:32:58 Date Recorded Body height Body mass index (BMI) Body weight Provider Name and Address Organization Details Last Updated DateTime 05/19/2024 172.72 cm 27.5 kg/m2 06438.22 g Jackeline Oni [facility] 05/19/2024 11:29:35 Social History Question Answer Notes LastModified by Organizat ion Details LastModified Time Tobacco Smoking Status Never Smoker [facility]ashree Coe rob [place] [facility] 11/05/2023 10:33:13 What Is Your Level Of Alcohol Consumption? Occasional [email or web address] Information not available 11/05/2023 How Many Times Per Week Do You Consume Alcohol? Less Than 1 Time Per Week [email or web address] Information not available 11/05/2023 Do You Use Any Illicit Or Recreational Drugs? No [email or web address] Information not available 11/05/2023 Do You Or Have You Ever Used Any Other Forms Of Tobacco Or Nicotine? No [email or web address] Information not available 11/05/2023 Sex: Unknown Functional Status None recorded. Mental Status None recorded. Family History Relationship Description Onset Age of this Age Resolved Age Notes LastModified by Organization Details LastModified Time Father Diabetes mellitus [email or web address] Not available 2023 10:33:48 Father History of hypertension [email or web address] Not available 08/2023 10:34:03 Mother Diabetes mellitus [email or web address] Not available 2023 10:33:48 Mother History of hypertension [email or web address] Not available 08/2023 10:34:03 Medical History Condition Response Reflux/GERD Y Hypertension Y Past Encounters Encounter ID Performer Location Encounter Start Date Encounter Closed Date Diagnosis/Indication Diagnosis SNOMED-CT Code Diagnosis ICD10 Code Diagnosis Note [id number] Kadeem Parrish MD [address] [address] 11/05/2023 10:14:14 11/05/2023 11:04:06 Pain of right knee region 4286038284 51562 M25.561 Additional diagnosis detail: Right knee pain, unspecifie d chronicity Pain of le ft knee region 6702524957 41836 M25.562 Additional diagnosis detail: Left knee pain, unspecifie d chronicity [id number] MD BROOKS Nieves[address] [address] 05/19/2024 11:25:21 05/19/2024 12:03:52 Pain of right knee region 1516415570 62419 M25.561 Additional diagnosis detail: Right knee pain, unspecifie d chronicity Pain of le ft knee region 4268078472 72335 M25.562 Additional diagnosis detail: Left knee pain, unspecifie d chronicity Health Concerns Section Related Observation LastModified by Organization Detai ls LastModified Time None Recorded Concern Status LastModified by Organization Details LastModified Time None Recorded Advance Directives Directive None Recorded Payers Encounter Date Sequence Insurance Name Policy Number Policy Stallings Covered Member ID Stallings Member ID Guarantor Name 11/05/2023 2 [place] [id number] Juliann pinton [id number] Gaudencio Logan 11/05/2023 1 [place] Gaudencio Logan [id number] Gaudencio Logan 05/19/2024 2 [place] [id number] Juliann pinton [id number] Gaudencio Logan 05/19/2024 1 [place]SE Logan [id number] Gaudencio Logan Notes Date Note Type Note Provider Name and Address Organization Details Recorded Time 11/05/2023 text/html 68-year-old male here for an evaluation of bilateral knee pain. In general the left side is worse. He has a history of bilateral knee arthroscopies greater than 20 years ago. The primary reason he is here is that the left knee feels like it is hyperextending. When he does that it is painful and intermittently swells. He notes some clicking in the right knee with extension. He cannot recall any new specific injury. He does a lot of yard work on uneven terrain. He does not wear a brace. I last saw him a few years ago, we did some physical therapy which we think was perhaps 3 years ago. He denies ryan catching or locking. Pain can range between a 2 to an 8 on a 10 point scale on the left side. He describes the pain as dull/aching, occasionally sharp. He is retired since 2019. Non-smoker. History of high blood pressure, hypothyroidism, acid reflux, essential tremor with dystonia, and irritable bowel syndrome. Kadeem Parrish MD [address], [place], [address], [place] [facility] 05/18/2024 19:37:02 05/19/2024 text/html Did PT after las t visit - not helpful.Symptoms come and go. Left knee is worse than right.Does a lot of yardwork. Walks backwards and has taken a few tumbles .Denies swelling. PRIOR:68-year-old male here for an evaluation of bilateral knee pain. In general the left side is worse. He has a history of bilateral knee arthroscopies greater than 20 years ago. The primary reason he is here is that the left knee feels like it is hyperextending. When he does that it is painful and intermittently swells. He notes some clicking in the right knee with extension. He cannot recall any new specific injury. He does a lot of yard work on uneven terrain. He does not wear a brace. I last saw him a few years ago, we did some physical therapy which we think was perhaps 3 years ago. He denies ryan catching or locking. Pain can range between a 2 to an 8 on a 10 point scale on the left side. He describes the pain as dull/aching, occasionally sharp. He is retired since 2019. Non-smoker. History of high blood pressure, hypothyroidism, acid reflux, essential tremor with dystonia, and irritable bowel syndrome. Kadeem Parrish MD [address], [place], [address], [place] [facility] 05/19/2024 12:07:35
--- OUTSIDE RECORDS SUMMARY | 2024-09-04 14:06 | XMS_ITS | Clinical Summary ---
Author Organization [facility] Address [address] [place] [address] Care Team Providers Care Credit Resolution Representative Name Role Phone Fatmata Bullock DO Primary Care Provider [phone] Allergies Active Allergy Reactions Criticality Noted Date Comments Penicillins Swelling Medium 01/17/2019 Medications Medication Sig Dispensed Refills Start Date End Date Status clonazePAM (KlonoPIN) 0.5 MG tablet Take 0.5 mg by mouth 2 times daily (every 12 hours) as needed. Active sildenafil (VIAGRA) 100 MG tablet Take 100 mg by mouth daily as needed for erectile dysfunction. Active lamoTRIgine (LaMICtal) 200 MG tablet 01/02/2023 Active SUMAtriptan (IMITREX) 50 MG tablet Take 50 mg by mouth once as needed for migraine. May repeat in 2 hours if unresolved. Do not exceed 200 mg in 24 hours. Active propranolol (INDERAL) 80 MG tablet Active primidone (MYSOLINE) 250 MG tablet Active OnabotulinumtoxinA (BOTOX IJ) 12/18/2022 Active Gruab-5-Ohtg Eth Est, Dietary, 1 g Cap Active lisinopril-hydroCHLOR Othiazide (PRINZIDE,ZESTORETIC) 10-12.5 MG per tablet 01/29/2024 Act low hyoscyamine (LEVSIN) 0.125 MG tablet Active levothyroxine (SYNTHROID, LEVOTHROID) 50 MCG tablet 04/09/2024 Active propranolol (INDERAL) 10 MG tablet 03/17/2024 Active Wellbutrin SR 100 MG 12 hr tablet 04/29/2024 Active Active Problems Problem Noted Date Diagnosed Date Rib pain on left side 07/11/2024 BMI 27.0-27.9,adult 04/28/2024 Recurrent major depression in partial remission 04/28/2024 Mixed hyperlipidemia 04/28/2024 Basal cell carcinoma 04/25/2024 Chronic pain of both knees 04/25/2024 Immune thrombocytopenia 04/25/2024 Tinnitus 04/25/2024 Chronic low back pain 04/25/2024 Prediabetes 04/25/2024 Depression 04/24/2024 IBS (irritable bowel syndrome) 04/24/2024 Murmur 04/24/2024 Right bundle branch block 04/24/2024 Hemorrhoids 02/23/2023 02/23/2023 Low platelet count 02/23/2023 02/23/2023 Mild sleep apnea 11/08/2022 De Quervain's tenosynovitis, left 01/11/2022 02/23/2023 Carpal boss of left wrist 09/16/20212022 Left hand pain 09/16/2021 02/23/2023 Dystonia 08/06/2004 Essential tremor 08/06/2004 High blood pressure 08/06/1979 Resolved Problems Problem Noted Date Diagnosed Date Resolved Date Medicare annual wellness visit, subsequent 04/28/2024 05/26/2024 Recurrent major depressive d isorder, in full remission 04/25/2024 04/28/2024 Immune thrombocytopenia 04/24/2024 09/2 Encounters Date Type Department Care Team Description 07/11/2024 9:15 AM EST Office Visit [facility] Department of Internal Medicine [address] [place] [address] Fatmata Bullock DO Rib pain on left side (Primary Dx) 07/10/2024 Travel 06/10/2024 Scanned Document [facility] [address] [place] [address] Fatmata Bullock DO from Last 3 Months Immunizations Name Administration Dates Next Due Influenza (AFLURIA/FLUZONE) Inactivated/Split Quadrivalent with Preservative IM 06/25/2021 Influenza Inactivated/Split Preservative Free IM 07/12/2018 Influenza, Quadrivalent (FLU ARIX, AFLURIA, FLULAVAL, FLUZONE) Preservative Free IM 06/21/2020,05/19/2019 Influenza, Recombinant, Quad rivalent (FLUBLOK) Preservative Free IM 05/16/2022 Influenza, Recombinant, Triv alent (FLUBLOK) Preservative Free IM 05/16/2022 Pneumococcal Conjugate 20-Valent 09/26/2022 Pneumococcal Conjugate 7-Valent 06/06/2014 Tdap 06/20/2019 Family History Medical History Relation Name Comments Chronic Kidney Disease Father Coronary artery disease Father Diabetes type II Father Hypertension Father Transient ischemic attack Father Asthma Mother Chronic Kidney Disease Mother Diabetes type II Mother Hypertension Mother Relation Name Status Comments Father Mother Social History Tobacco Use Types Packs/Day Years Used Date Smoking Tobacco: Never Smokeless Tobacco: Never Tobacco Cessation:Counseling Given: Not Answered Alcohol Use Standard Drinks/Week Comments Yes 0 (1 standard drink = 0.6 oz pur e alcohol) occasional Sex and Gender Information Value Date Recorded Sex Assigned at Male 03/06/2024 6:06 PM EDT Gender Identity Male 03/06/2024 6:06 PM EDT Sexual Orientation Heterosexual (straight) 03/06 6:06 PM EDT Last Filed Vital Signs Vital Sign Reading Time Taken Comments Blood Pressure 120/80 07/11/2024 9:33 AM EST Pulse 58 07/11/2024 9:15 AM EST Temperature 36.2 ??C (97.1 ??F) 07/11/2024 9:15 AM ES T Respiratory Rate 16 10/10/2023 9:17 AM EST Oxygen Saturation 99% 10/10/2023 9:17 AM EST Inhaled Oxygen Concentration - - Weight 82.1 kg (181 lb) 07/11/2024 9:15 AM EST Height 171.5 cm (5' 7.5 ) 04/25/2024 3:37 PM EDT Body Mass Index 27.93 04/25/2024 3:37 PM EDT Plan of Treatment Upcoming Encounters Date Type Department Care Team (Late st Contact Info) Description 10/23/2024 11:45 AM EDT Office Visit [facility] Department of Internal Medicine [address] [place] [address] Fatmata Bullock DO [address] [address] Health Maintenance Due Date Last Done Comments Hepatitis C Virus Screening 1955 Colonoscopy 2002 Zoster (Shingles) Vaccine (1 of 2) 2007 Influenza Vaccine 03/06/2024 05/16/2022, , 06/25/2021, Additional history exists COVID-19 Vaccine (3 - season) 2024 11/11/2020, 10/09/2020 DTaP/Tdap/Td Vaccines (2 - Td or Tdap) 06/20/2029 06/20/2019 RSV Vaccine 60 years and older and Patients (1 - 1-dose 75+ series) 2032 Pneumococcal Vaccines 50+ Completed 09/26/2022, 08/2013 Hepatitis B Vaccines Aged Out No long er eligible based on patient's age to complete this topic Procedures Procedure Name Priority Date/Time Associated Diagnosis Comments ECHOCARDIOGRAM (TTE) COMPREHENSIVE (CONTRAST PRN) Routine 06/09/2024 3:40 PM EST Murmur from Last 3 Months Results * ECHOCARDIOGRAM COMPREHENSIVE (06/09/2024 3:40 PM EST) Anatomical Region Laterality Modality Ultrasound 06/10/2024 1:07 PM EST Narrative 06/10/2024 1:07 PM EST To view the final report click the scan hyperlink below. Procedure Note Vern Sahu MD - 06/10/2024 To view the final report click the scan hyperlink below. Fatmata Bullock DO CV ECHO ORDERABLES from Last 3 Months Care Teams Credit Resolution Representative Relationship Specialty Start Date End Date Fatmata Bullock DO [address] [address] PCP - General Family Medicine 03/06/24
--- OUTSIDE RECORDS SUMMARY | 2024-09-04 14:06 | XMS_ITS | Encounter Summary ---
Author Organization [facility] Address [address] [place] [address] Care Team Providers Care Television Camera Operator Name Role Phone Fatmata Bullock DO Primary Care Provider Encounter Details Date Type Department Care Team (Late st Contact Info) Description 04/10/2024 Scanned Document [facility] Department of Internal Medicine [address] [place] [address] Fatmata Bullock DO [address] [place] [address] Social History Tobacco Use Types Packs/Day Years [...] Description 10/23/2024 11:45 AM EDT Office Visit [facility] Department of Internal Medicine [address] 1[address] [place] [address] Fatmata Bullock DO [address] [place] [address] documented as of this encounter Visit Diagnoses Not on filedocumented in this encounter Care Teams Television Camera Operator Relationship Specialty Start Date End Date Fatmata Bullock DO [address] [address] PCP - General Family Medicine 03/06/24 documented as of this encounter
--- OUTSIDE RECORDS SUMMARY | 2024-09-04 14:06 | XMS_ITS | Clinical Summary ---
Author Organization [facility] Address [address] [place] [address] Care Team Providers Care Material Control Supervisor Name Role Phone Emperatriz Pavon MD Primary Care Provider [phone] Allergies Active Allergy Reactions Criticality Noted Date Comments Penicillins Swelling Medium 01/17/2019 Medications Medication Sig Dispensed Refills Start Date End Date Status levothyroxine (SYNTHROID, LEVOXYL) tablet 75 mcg Take 75 mcg by mouth. 0 Active clonazePAM (KlonoPIN) 0.5 MG tablet Take 0.5 mg by mouth every 12 (twelve) hours as needed. 0 Active lisinopril (PRINIVIL,ZESTRIL) tablet 5 mg Take 5 mg by mouth. 0 Active primidone (MYSOLINE) 250 MG tablet Take 250 mg by mouth. 0 Active propranolol (INDERAL) 60 MG tablet Take 60 mg by mouth. 0 Active lamoTRIgine (LaMICtal) 200 MG tablet 0 08/09/2020 Active ALPRAZolam (XANAX) 0.5 MG tablet Take 0.5 mg by mouth every 8 (eight) hours as needed. 0 Active cyclobenzaprine (FLEXERIL) 5 MG tablet Take 5 mg by mouth every 8 (eight) hours as needed. 0 Active sildenafil (VIAGRA) 100 MG tablet Take 100 mg by mouth daily as needed. 0 Active SUMAtriptan (IMITREX) 50 MG tablet 0 05/14/2020 Active testosterone cypionate (DEPO-TESTOSTERONE CYPIONATE) injection 200 mg/mL 0 07/22/2020 Active hyoscyamine (LEVSIN/SL) 0.125 MG SL tablet Take 0.125 mg by mouth every 4 (four) hours as needed for cramping. 0 Active Acetaminophen (TYLENOL 8 HOUR PO) Take by mouth. 0 Active Cetirizine HCl (ZYRTEC PO) Take by mouth. 0 Active Active Problems Problem Noted Date Diagnosed Date De Quervain's tenosynovitis, left 01/11/2022 Left hand pain 09/16/2021 [facility] boss left wrist 09/16/2021 Family History Medical History Relation Name Comments Diabetes Father Arthritis Mother Clotting disorder Mother Diabetes Mother Hypertension Mother Relation Name Status Comments Father Mother Social History Tobacco Use Types Packs/Day Years Used Date Smoking Tobacco: Former Smokeless Tobacco: Former Alcohol Use Standard Drinks/Week Comments Yes 0 (1 standard drink = 0.6 oz pur e alcohol) Sex and Gender Information Value Date Recorded Sex Assigned at Not on file Gender Identity Not on file Sexual Orientation Not on file Job Start Date Occupation Industry Not on file Not on file Not on file Last Filed Vital Signs Vital Sign Reading Time Taken Comments Blood Pressure - - Pulse - - Temperature - - Respiratory Rate - - Oxygen Saturation - - Inhaled Oxygen Concentration - - Weight 81.6 kg (180 lb) 02/01/2022 11:50 AM EDT Height 172.7 cm (5' 8 ) 02/01/2022 11:50 AM EDT Body Mass Index 27.37 02/01/2022 11:50 AM EDT Plan of Treatment Health Maintenance Due Date Last Done Comments Hepatitis C Screening 1957 COVID-19 Vaccine (#1) 03/02/1958 Depression Screening 1969 BMI Counseling 1975 Preventative Health Evaluation 1975 DTap / Tdap / Td (1 - Tdap) 1976 Colon Cancer Screening (Colonoscopy) 2002 Shingrix-Zoster Vaccine (1 of 2) 2007 Fall Risk Assessment 2022 Pneumococcal Vaccine (1 of 1 - PCV) 2022 Influenza Vaccine (#1) 2024 RSV Adult > 60+ Yrs or Pregn ant (1 - 1-dose 75+ series) 2032 Hepatitis B Vaccines Aged Out No long er eligible based on patient's age to complete this topic RSV Ped < 20 months Aged Out No longe r eligible based on patient's age to complete this topic Care Teams Material Control Supervisor Relationship Specialty Start Date End Date Emperatriz Pavon MD [address] [place] [address] [address] [place] [address] PCP - General Internal Medicine 08/10/20
--- OUTSIDE RECORDS SUMMARY | 2024-09-04 14:06 | XMS_ITS | Encounter Summary ---
Author Organization [facility] Address [address] [place] [address] Care Team Providers Care Bulb Planter Name Role Phone Fatmata Bullock DO Primary Care Provider Encounter Details Date Type Department Care Team (Late st Contact Info) Description 04/10/2024 Scanned Document [facility] Department of Internal Medicine [address] [place] [address] Fatmata Bullock DO [address] [place] [address] Social History Tobacco Use Types Packs/Day Years [...] Description 10/23/2024 11:45 AM EDT Office Visit [facility] Department of Internal Medicine [address] 1st [place] [address] Fatmata Bullock DO [address] [place] [address] documented as of this encounter Visit Diagnoses Not on filedocumented in this encounter Care Teams Bulb Planter Relationship Specialty Start Date End Date Fatmata Bullock DO [address] [address] PCP - General Family Medicine 03/06/24 documented as of this encounter
--- OUTSIDE RECORDS SUMMARY | 2024-09-04 14:06 | XMS_ITS | Encounter Summary ---
Author Organization [facility] Address [address] [place] [address] Care Team Providers Care Bilingual Medical Receptionist Name Role Phone Kris Craft MD Primary Care Provider Fatmata Bullock DO Primary Care Provider [phone] Encounter Details Date Type Department Care Team (Late st Contact Info) Description 04/18/2023 Scanned Document [facility] Department of Internal Medicine [place] [address] [facility] [address] [place] [address] Kris Craft MD [address] [place], [place] [phone] Social History Tobacco Use Types Packs/Day Years [...] Description 10/23/2024 11:45 AM EDT Office Visit [facility] Department of Internal Medicine [address] 1st [place] [address] Fatmata Bullock DO [address] [place] [phone] documented as of this encounter Visit Diagnoses Not on filedocumented in this encounter Care Teams Bilingual Medical Receptionist Relationship Specialty Start Date End Date Kris Craft MD [address] [place] [address] PCP - General Internal Medicine 11/30/22 03/05/24 Fatmata Bullock DO [address] [facility] [address] [place] [address] PCP - General Family Medicine 03/06/24 documented as of this encounter
--- OUTSIDE RECORDS SUMMARY | 2024-09-04 14:06 | XMS_ITS | Encounter Summary ---
Author Organization [facility] Address [address] [place] [address] Care Team Providers Care Property Maintenance Technician Name Role Phone Fatmata Bullock DO Primary Care Provider [phone] Encounter Details Date Type Department Care Team (Late st Contact Info) Description 04/11/2024 Scanned Document [facility] Department of Internal Medicine [address] [place] [address] Fatmata Bullock DO [address] [place] [address] Social History Tobacco Use Types Packs/Day Years [...] Description 10/23/2024 11:45 AM EDT Office Visit [facility] Department of Internal Medicine [address] 1st [place] [address] Fatmata Bullock DO [address] [place] [address] documented as of this encounter Visit Diagnoses Not on filedocumented in this encounter Care Teams Property Maintenance Technician Relationship Specialty Start Date End Date Fatmata Bullock DO [address] [address] PCP - General Family Medicine 03/06/24 documented as of this encounter
--- OUTSIDE RECORDS SUMMARY | 2024-09-04 14:06 | XMS_ITS | Encounter Summary ---
Author Organization [facility] Address [address] [place] [address] Care Team Providers Care Yacht Builder Name Role Phone Fatmata Bullock DO Primary Care Provider [phone] Encounter Details Date Type Department Care Team (Late st Contact Info) Description 04/11/2024 Scanned Document [facility] Department of Internal Medicine [address] [place] [address] Fatmata Bullock DO [address] [place] [address] Social History Tobacco Use Types Packs/Day Years [...] Description 10/23/2024 11:45 AM EDT Office Visit [facility] Department of Internal Medicine [address] 1[address] [place] [address] Fatmata Bullock DO [address] [place] [address] documented as of this encounter Visit Diagnoses Not on filedocumented in this encounter Care Teams Yacht Builder Relationship Specialty Start Date End Date Fatmata Bullock DO [address] [address] PCP - General Family Medicine 03/06/24 documented as of this encounter
--- OUTSIDE RECORDS SUMMARY | 2024-09-04 14:06 | XMS_ITS | Encounter Summary ---
Author Organization [facility] Address [address] [place] [address] Care Team Providers Care Research Greenhouse Supervisor Name Role Phone Fatmata Bullock DO Primary Care Provider Encounter Details Date Type Department Care Team (Late st Contact Info) Description 04/29/2024 Scanned Document [facility] Department of Internal Medicine [address] [place] [address] Fatmata Bullock DO [address] [place] [address] Social History Tobacco Use Types Packs/Day Years [...] Description 10/23/2024 11:45 AM EDT Office Visit [facility] Department of Internal Medicine [address] 1st [place] [address] Fatmata Bullock DO [address] [place] [address] documented as of this encounter Visit Diagnoses Not on filedocumented in this encounter Care Teams Research Greenhouse Supervisor Relationship Specialty Start Date End Date Fatmata Bullock DO [address] [address] PCP - General Family Medicine 03/06/24 documented as of this encounter
--- OUTSIDE RECORDS SUMMARY | 2024-09-04 14:06 | XMS_ITS | Encounter Summary ---
Author Organization [facility] Address [address] [place] [address] Care Team Providers Care Rock Wool Insulator Name Role Phone Fatmata Bullock DO Primary Care Provider Encounter Details Date Type Department Care Team (Late st Contact Info) Description 06/10/2024 Scanned Document [facility] Department of Internal Medicine [address] [place] [address] Fatmata Bullock DO [address] [place] [address] Social History Tobacco Use Types Packs/Day Years [...] Description 10/23/2024 11:45 AM EDT Office Visit [facility] Department of Internal Medicine [address] 1[address] [place] [address] Fatmata Bullock DO [address] [place] [address] documented as of this encounter Visit Diagnoses Not on filedocumented in this encounter Care Teams Rock Wool Insulator Relationship Specialty Start Date End Date Fatmata Bullock DO [address] [address] PCP - General Family Medicine 03/06/24 documented as of this encounter
--- OUTSIDE RECORDS SUMMARY | 2024-09-04 14:06 | XMS_ITS | Encounter Summary ---
Author Organization [facility] Address [address] [place] [address] Care Team Providers Care Photogrammetrist Name Role Phone Fatmata Bullock DO Primary Care Provider [phone] Encounter Details Date Type Department Care Team (Late st Contact Info) Description 04/17/2024 Scanned Document [facility] Department of Internal Medicine [address] [place] [address] Fatmata Bullock DO [address] [place] [address] Social History Tobacco Use Types Packs/Day Years [...] Description 10/23/2024 11:45 AM EDT Office Visit [facility] Department of Internal Medicine [address] 1[address] [place] [address] Fatmata Bullock DO [address] [place] [address] documented as of this encounter Visit Diagnoses Not on filedocumented in this encounter Care Teams Photogrammetrist Relationship Specialty Start Date End Date Fatmata Bullock DO [address] [address] PCP - General Family Medicine 03/06/24 documented as of this encounter
--- OUTSIDE RECORDS SUMMARY | 2024-09-04 14:07 | XMS_ITS ---
Author Name [facility] Organization Unknown History of Medication Use Medication Directions Dispensed Refills Start Date End Date Status sulfamethoxazole 800 mg-trimethoprim 160 mg tablet TAKE 1 TABLET BY MOUTH TWICE A DAY 11/29/19 24 completed triamcinolone acetonide 0.1 % topical ointment PLEASE SEE ATTACHED FOR DETAILED DIRECTIONS 11/29/19 24 completed testosterone cypionate (DEPO-TESTOTERONE CYPIONATE) 100 mg/mL injection Inject into the shoulder, thigh, or buttocks every 14 days (2 weeks). active triamcinolone acetonide 40 mg/mL suspension for injection active lamotrigine 100 mg tablet 11/29/19 24 completed testosterone cypionate 200 mg/mL intramuscular oil INJECT 0.7 ML INTRAMUSCULARLY EVERY 2 WEEKS 11/29/19 24 completed sildenafil 100 mg tablet 1 tablet as needed by oral route. 4 active buPROPion (ZYBAN) 150 MG 12 hr tablet Take 150 mg by mouth 2 (two) times a day. 02/24/20 23 aborted predniSONE (DELTASONE) 20 MG tablet Take 2 tablets (40 mg total) by mouth daily. With food. 4 10/16/19 24 active sulfamethoxazole-trim ethoprim (BACTRIM DS,SEPTRA DS) 800-160 MG per tablet Take 1 tablet by mouth 2 (two) times a day. 4 10/18/19 24 active lidocaine (PF) 100 mg/5 mL (2 %) injection syringe Take 3 mL by injection route. 4 active cyclobenzaprine (FLEXERIL) 5 MG tablet Take 5 mg by mouth 3 times daily (every 8 hours) as needed for muscle spasms. active tadalafil 5 mg tablet ac tive lisinopril 10 mg-hydrochlorothiazid e 12.5 mg tablet Take 1 tablet every day by oral route. active propranolol ER 80 mg capsule,24 hr,extended release activ e mupirocin (BACTROBAN) 2 % ointment Apply topically 3 (three) times a day. 3 03/03/20 23 active levothyroxine 50 mcg tablet active tadalafil 4 active Problems Problem Status Onset Date Problem Type Date of Resolution Source Pain of right knee region active 2024-05-18 ProblemAct [facility] Hemorrhoids active 2023-02-23 ProblemAct [facility] Skin infection active [facility]osis[facility] Allergic reaction to bee sting active EncounterDiagnosisAct [facility] Pain of left knee region active 2024-05-18 ProblemAct [facility] Left hand pain active 2021-09-[address] Low platelet count active 2023-02-23 ProblemAct [facility] Carpal boss of left wrist active 2021-09-16 ProblemAct [facility] De Quervain's tenosynovitis, left active 2022-01-11 ProblemAct [facility]
== END 2024-09-04 10:58 | disposition home or self-care (01) ==
PROVIDERS: PCP Physician Assistant; Visit Provider Psychiatry & Neurology Neurology
DX: G24.3 Spasmodic torticollis (principal); G47.33 Obstructive sleep apnea (adult) (pediatric); G25.0 Essential tremor; G25.2 Other specified forms of tremor
CPT/HCPCS: 99214; G2211

== ENCOUNTER → 2024-09-04 10:31 | Outpatient (BNVA) | payer MEDICARE, SELFPAY | PROVIDERS: PCP Physician Assistant; Visit Provider Psychiatry & Neurology Neurology | DX: G24.3 Spasmodic torticollis (principal); G25.0 Essential tremor; G25.2 Other specified forms of tremor; G47.33 Obstructive sleep apnea (adult) (pediatric) | CPT/HCPCS: 99212 ==